=== PATIENT | male | born 1970 | race Caucasian/White ===

== ENCOUNTER 2017-01-20 21:24 | Emergency (ER) | payer MEDICAID, MEDICARE ==
[~2017-01-20] VITALS: Ht 182.9 cm; Wt 113.4 kg
[~2017-01-20 21:24] MED LIST: ARIP5TAB20 PO; ARPZ10T; ASP81TEC PO; BSP10T; DICL75TA2 PO; Famotidine PO; HYDR-3062 PO; LISI1TAB8 PO; LORA10TA7 PO; OFLO5DRO7 EACH EAR; PARO10TA2 PO; PARO10TA21; PROP80TA3 PO; SULF1TAB35 PO; TIZA4CAP6 PO
--- NOTE | 2017-01-20 22:24 | ED General ---
General Chief Complaint: Head/Cervical Problems Stated Complaint: L SIDE NECK PAIN/SWELLING Nursing Triage Note: PT CO OF LUMP ON SIDE OF NECK/SHOULDER AREA, HAS HAD FOR 1 WEEK, PAIN 4/10 Nursing Sepsis Screen: No Definite Risk Source of Information: Patient, Spouse Exam Limitations: No Limitations History of Present Illness Time Seen by Provider: 22:09 Initial Comments Patient presents to ER by private conveyance with his with a chief complaint of a lump on the left side of his neck that has progressively grown for the past week. It is not painful he has not had any recent infections illness sore throat runny nose here pain eye pain nose pain. He states he's had no shortness of breath cough pain in his chest or his abdomen. He does smoke about half a pack a day. He said his mom had lung cancer. His sister has lymphoma and she is about a year younger than him. He says he is not having any nausea diarrhea or constipation. He denies any weight change however he does not check his weight. No fatigue or malaise or anorexia. He states he is having about a 4 out of 10 dull aching pain in that area of the lump just above his clavicle on the left side of his neck and shoulder. He has not taken anything for today. Allergies and Home Medications Allergies Coded Allergies: cefaclor (Unverified Allergy, Mild, ABDOMINAL PAIN/NAUSEA, 10/22/08) erythromycin base (Unverified Allergy, Mild, 10/21/08) Home Medications Aripiprazole 5 Mg Tablet, 5 MG PO HS, (Reported) Hydrocodone/Acetaminophen 1 Each Tablet, 1-2 TAB PO Q4H PRN for PAIN, #40 Prescribed by: MARISOL GALLEGOS on 07/03/15 1226 Lisinopril/Hydrochlorothiazide 1 Tab Tablet, 1 TAB PO BID, #30 Ref 11 Prescribed by: VALERI VELARDE on 12/26/14 1619 Loratadine 10 Mg Tablet, 10 MG PO DAILY, (Reported) Ofloxacin 5 Ml Drops, 3 DROPS EACH EAR BID for 5 Days, Ref 3 Prescribed by: MARISOL GALLEGOS on 07/03/15 1226 Paroxetine Hcl 10 Mg Tablet, 50 MG PO DAILY, (Reported) Propranolol Hcl 80 Mg Tablet, 80 MG PO BID, (Reported) Tizanidine Hcl 4 Mg Capsule, 4 MG PO Q8H PRN for SPASMS, (Reported) [Famotidine] 20 MG TABLET, 20 MG PO BID, #60 Ref 11 Prescribed by: VALERI VELARDE on 12/26/14 1619 Constitutional: see HPI, No chills, No diaphoresis EENTM: No ear pain, No eye pain Respiratory: No cough, No short of breath Cardiovascular: No chest pain, No palpitations, No syncope, No vascular heart diseas, other (orthopnea positive) Gastrointestinal: No abdominal pain, No constipation, No diarrhea, No nausea, No vomiting Genitourinary: No dysuria, No pain Musculoskeletal: No back pain, No joint pain Skin: other (skin is darkening over the left side of his neck and shoulder) Psychiatric/Neurological: Denies Headache, Denies Numbness Past Ldvtxdu-Wuhezz-Dansey Hx Patient Social History Alcohol Use: Denies Use Recreational Drug Use: No Smoking Status: Current Everyday Smoker Type Used: Cigarettes 2nd Hand Smoke Exposure: No Recent Foreign Travel: No Contact w/Someone Who Travel: No Recent Infectious Disease Expo: No Recent Hopitalizations: No Immunizations Up To Date Tetanus Booster (TDap): Unknown Date of Influenza Vaccine: Apr 25, 2015 Surgeries HX Surgeries: Yes (reattached tendon on right hand) Surgeries: Gallbladder, Orthopedic, Vasectomy Respiratory Hx Respiratory Disorders: Yes (Tobaccoism, NEEDS SLEEP STUDY) Respiratory Disorders: Sleep Apnea Cardiovascular Hx Cardiac Disorders: Yes (past chest pain, STRESS TEST THIS SUMMER-) Cardiac Disorders: Hypertension Neurological Hx Neurological Disorders: Yes Reproductive System Hx Reproductive Disorders: No Sexually Transmitted Disease: No HIV/AIDS: No Genitourinary Hx Genitourinary Disorders: No Gastrointestinal Hx Gastrointestinal Disorders: Yes Gastrointestinal Disorders: Gastroesophageal Reflux Musculoskeletal Hx Musculoskeletal Disorders: Yes Musculoskeletal Disorders: Degenerate Disk Disease, Arthritis, Chronic Back Pain Endocrine Hx Endocrine Disorders: No HEENT HX ENT Disorders: Yes (GLASSES) Loss of Vision: Bilateral Hearing Impairment: Denies Cancer Hx Cancer: No Psychosocial Hx Psychiatric Problems: Yes Behavioral Health Disorders: Anxiety, Bipolar, Depression Integumentary HX Skin/Integumentary Disorder: No Blood Transfusions Hx Blood Disorders: No Adverse Reaction to a Blood Tr: No Family Medical History Significant Family History: Cancer Family Medial History: FH: cancer 19 MOTHER ( FROM CANCER LAST YEAR 2013.) Physical Exam Vital Signs Vital Sign - Last 12Hours 01/20/17 22:05 Temp 97.2 Pulse 112 Resp 20 B/P (MAP) 148/93 Pulse Ox 96 Capillary Refill : Less Than 3 Seconds General Appearance: No Apparent Distress, WD/WN, Obese Eyes: Bilateral Eye EOMI, Bilateral Eye Normal Inspection, Bilateral Eye PERRL HEENT: Pharynx Normal, Other (mild diaphoresis both sides of his face.) Neck: Other (there is a 4-5 cm soft mobile and mildly tender mass left of his neck in the Virchow node region) Respiratory: Chest Non Tender, Lungs Clear, Normal Breath Sounds Cardiovascular: No Edema Gastrointestinal: Normal Bowel Sounds, No Organomegaly, No Pulsatile Mass, Non Tender, Soft Extremity: Normal Capillary Refill, Normal Range of Motion, Non Tender Neurologic/Psychiatric: Alert, Oriented x3, No Motor/Sensory Deficits, 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 II- XII Norm as Tested Skin: Normal Color, Warm/Dry Focused Exam Lactic Acid Level Laboratory Tests Test 01/21/17 00:23 Progress/Results/Core Measures Results/Orders Lab Results Laboratory Tests Test 01/20/17 22:40 01/21/17 00:23 Range/Units White Blood Count 12.7 H 4.3-11.0 10^3/uL Red Blood Count 4.72 4.35-5.85 10^6/uL Hemoglobin 15.1 13.3-17.7 G/DL Hematocrit 46 40-54 % Mean Corpuscular Volume 97 80-99 FL Mean Corpuscular Hemoglobin 32 25-34 PG Mean Corpuscular Hemoglobin Concent 33 32-36 G/DL Red Cell Distribution Width 12.5 10.0-14.5 % Platelet Count 326 130-400 10^3/uL Mean Platelet Volume 10.1 7.4-10.4 FL Neutrophils (%) (Auto) 56 42-75 % Lymphocytes (%) (Auto) 34 12-44 % Monocytes (%) (Auto) 9 0-12 % Eosinophils (%) (Auto) 1 0-10 % Basophils (%) (Auto) 0 0-10 % Neutrophils # (Auto) 7.0 1.8-7.8 X 10^3 Lymphocytes # (Auto) 4.3 H 1.0-4.0 X 10^3 Monocytes # (Auto) 1.2 H 0.0-1.0 X 10^3 Eosinophils # (Auto) 0.1 0.0-0.3 10^3/uL Basophils # (Auto) 0.0 0.0-0.1 10^3/uL Sodium Level 137 135-145 MMOL/L Potassium Level 3.7 3.6-5.0 MMOL/L Chloride Level 105 98-107 MMOL/L Carbon Dioxide Level 16 L 21-32 MMOL/L Anion Gap 16 H 5-14 MMOL/L Blood Urea Nitrogen 16 7-18 MG/DL Creatinine 0.80 0.60-1.30 MG/DL Estimat Glomerular Filtration Rate > 60 BUN/Creatinine Ratio 20 Glucose Level 99 70-105 MG/DL Calcium Level 8.7 8.5-10.1 MG/DL Total Bilirubin 0.4 0.1-1.0 MG/DL Aspartate Amino Transf (AST/SGOT) 18 5-34 U/L Alanine Aminotransferase (ALT/SGPT) 26 0-55 U/L Alkaline Phosphatase 44 40-136 U/L C-Reactive Protein High Sensitivity 1.09 H 0.00-0.50 MG/DL B-Type Natriuretic Peptide 14.7 <100.0 PG/ML Total Protein 7.8 6.4-8.2 GM/DL Albumin 4.1 3.2-4.5 GM/DL My Orders Orders - JOVAN DIAS BNP (01/20/17 22:25) Cbc With Automated Diff (01/20/17 22:25) Comprehensive Metabolic Panel (01/20/17 22:25) Hs C Reactive Protein (01/20/17 22:25) Chest Pa/Lat (2 View) (01/20/17 22:25) Saline Lock/Iv-Start (01/20/17 22:25) Ns Iv 1000 Ml (Sodium Chloride 0.9%) (01/20/17 22:25) Ct Chest/Abdomen/Pelvis W (01/20/17 22:25) Iohexol Injection (Omnipaque 350 Mg/Ml 1 (01/20/17 23:00) Ns (Ivpb) (Sodium Chloride 0.9% Ivpb Bag (01/20/17 23:00) Lactic Acid Analyzer (01/21/17 00:18) Medications Given in ED Current Medications Medications Dose Ordered Sig/Tang Route Start Time Stop Time Status Last Admin Dose Admin Iohexol 100 ml ONCE ONCE IV 01/20/17 23:00 01/20/17 23:01 DC 01/20/17 22:57 100 ML Sodium Chloride 100 ml ONCE ONCE IV 01/20/17 23:00 01/20/17 23:01 DC 01/20/17 22:57 80 ML Sodium Chloride 1,000 ml @ 0 mls/hr Q0M ONCE IV 01/20/17 22:25 01/20/17 22:27 DC 01/20/17 23:10 1,000 MLS/HR Vital Signs/I&O Vital Sign - Last 12Hours 01/20/17 22:05 Temp 97.2 Pulse 112 Resp 20 B/P (MAP) 148/93 Pulse Ox 96 Blood Pressure Mean: 111 Progress Note #1: Time: 22:24 Progress Note With his history of smoking and now I large likely lymphatic tissue and his workout nodule its popped over 1 week and is only mildly tender I would be concerned about GI source. 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 We'll go ahead and get CT scan of the chest and abdomen with contrast. 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 Diagnostic Imaging Diagonstic Imaging: CT Plain Films/CT/US/NM/MRI: chest, abdomen (pelvis with) Consults Consults : Consulting Physician: NOEL JACKSON MD Consults Notes Left VM 0024 Departure Impression Impression: Primary Impression: Mass of left side of neck Disposition: 01 HOME, SELF-CARE Condition: Stable Departure-Patient Inst. Decision time for Depature: 00:48 Referrals: [facility] (PCP) Primary Care Physician Patient Instructions: LYMPH NODE SWELLING Add. Discharge Instructions: I recommend that she get in touch with your primary care physician's office tomorrow morning and discuss this evening's findings with him. I will send a copy of this note to your primary care physician. Further workup may include potentially biopsying lymph nodes if they're not getting better. If you're having pain on the lymph node on the left side of her neck you can apply warm compresses to it take Tylenol 1000 mg every 8 hours or ibuprofen 800 mg every 8 hours. Make sure drinking plenty of fluids. If you have any new or worrisome symptoms such as nausea and vomiting or extreme pain or fever over 102 then you should return to the ER immediately. Otherwise plan on getting in with your primary care physician early next week. All discharge instructions reviewed with patient and/or family. Voiced understanding. Copy Copies To 1: PAMELA VALLEJO TITUS J Jan 20, 2017 22:24
[2017-01-20 22:51] LABS: BASOPHILS % (AUTO) 0 % (0-10); EOSINOPHILS # (AUTO) 0.1 10^3/uL (0.0-0.3); EOSINOPHILS % (AUTO) 1 % (0-10); LYMPHOCYTES # (AUTO) 4.3 X 10^3 (1.0-4.0); LYMPHOCYTES % (AUTO) 34 % (12-44); MEAN CORPUSCULAR HEMOGLOBIN 32 PG (25-34); MEAN CORPUSCULAR HGB CONC 33 G/DL (32-36); MEAN CORPUSCULAR VOLUME 97 FL (80-99); MEAN PLATELET VOLUME 10.1 FL (7.4-10.4); MONOCYTES # (AUTO) 1.2 X 10^3 (0.0-1.0); MONOCYTES % (AUTO) 9 % (0-12); NEUTROPHILS % (AUTO) 56 % (42-75); PLATELET COUNT 326 10^3/uL (130-400); RED BLOOD COUNT 4.72 10^6/uL (4.35-5.85); RED CELL DISTRIBUTION WIDTH 12.5 % (10.0-14.5); WHITE BLOOD COUNT 12.7 10^3/uL (4.3-11.0)
[2017-01-20] MEDS: NS 100 ML (IVPB) BAG IV ONE (22:57)
[2017-01-20] MEDS: IOHEXOL 350 MG/ML 100 ML (OMNIPAQUE 350) VIAL IV ONE (22:57)
[2017-01-20 23:08] LABS: ALANINE AMINOTRANSFERASE 26 U/L (0-55); ALBUMIN 4.1 GM/DL (3.2-4.5); ANION GAP 16 MMOL/L (5-14); ASPARTATE AMINO TRANSFERASE 18 U/L (5-34); BILIRUBIN,TOTAL 0.4 MG/DL (0.1-1.0); BLOOD UREA NITROGEN 16 MG/DL (7-18); BUN/CREATININE RATIO 20; CALCIUM 8.7 MG/DL (8.5-10.1); CARBON DIOXIDE 16 MMOL/L (21-32); CHLORIDE 105 MMOL/L (98-107); GFR ESTIMATED > 60; GLUCOSE 99 MG/DL (70-105); POTASSIUM 3.7 MMOL/L (3.6-5.0); SODIUM 137 MMOL/L (135-145); TOTAL PROTEIN 7.8 GM/DL (6.4-8.2); hs C REACTIVE PROTEIN 1.09 MG/DL (0.00-0.50)
[2017-01-20] MEDS: NS IV 1000 ML 1,000 ML IV ONE (23:10)
[2017-01-21 01:04] VITALS: BP 132/68
--- NOTE | 2017-01-21 07:16 | Diagnostic Imaging Report ---
PROCEDURE: CT chest, abdomen, and pelvis with contrast. TECHNIQUE: Multiple contiguous axial images were obtained through the chest, abdomen, and pelvis after the administration of intravenous contrast. INDICATION: Swelling to the left shoulder and clavicle x1 week. COMPARISON: 01/20/2015 FINDINGS: CT chest: Cardiomediastinal structures show normal heart size. There is no large pericardial effusion. No pathologically enlarged or morphologically abnormal adenopathy is seen within the mediastinum, caleb, nor axilla. Evaluation of the lung merrill demonstrates no focal consolidation, pleural effusion, nor pneumothorax. There is some mild air trapping within the anterior upper lobes. No pulmonary nodules or masses are identified. Bony structures show no acute abnormalities. No lytic or blastic osseous lesions are seen. CT abdomen: Normal appendix is identified. Small bowel loops are nondistended. There are a few scattered colonic diverticuli. There is no CT evidence of acute diverticulitis. Liver appears diffusely hypodense on this postcontrast exam. Findings are likely on the basis of background of hepatic steatosis. No focal hepatic mass type lesions are seen. There is punctate rounded area of hypoenhancement within the parenchyma of the left kidney (image 44, series 5). This may represent a cyst, but is too small to adequately characterize based on this exam. Otherwise, the Kidneys, adrenal glands, spleen, and pancreas have a normal CT appearance. There is slight stranding of the central mesenteric fat. Few prominent appearing, yet subcentimeter mesenteric lymph nodes are noted. Otherwise, no abnormal mesenteric or retroperitoneal adenopathy is identified. There is no loculated fluid collection, free fluid, nor free air within the abdomen. 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 Bony structures show no acute abnormalities. CT pelvis: Urinary bladder is grossly unremarkable. There is no loculated fluid collection, free fluid, nor free air within the pelvis. No abnormal lymph nodes are seen. Bony structures show no acute abnormalities. IMPRESSION: 1. No acute cardiopulmonary process. 2. Mild air trapping within the bilateral upper lobes. Correlation with underlying obstructive pulmonary disease is recommended. 3. Probable hepatic steatosis. 4. Duplicated IVC. 5. Small rounded hypodensity within the parenchyma of the left kidney. Findings could be on the basis of a small cyst, although it is too small to adequately characterize based on this exam. 6. Few prominent appearing, yet subcentimeter mesenteric lymph nodes with slight haziness of the mesenteric fat. Finding are nonspecific, but can be seen with underlying mesenteric panniculitis. Dictated by: Dictated on workstation # [id number]
--- NOTE | 2017-01-21 07:29 | Diagnostic Imaging Report ---
PA and lateral views of the chest. INDICATION: Swelling of the left shoulder and clavicle. FINDINGS: The lungs demonstrate interstitial prominence which appears chronic. The heart is normal. No effusion or pneumothorax. Mediastinum and caleb appear unremarkable. IMPRESSION: No acute process. Dictated by: Dictated on workstation # [id number]
== END 2017-01-21 01:06 | disposition home or self-care (01) ==
LOC: EDUNIT# 21:24 → ER 21:27
DX: R22.1 Localized swelling, mass and lump, neck (principal); F31.9 Bipolar disorder, unspecified; F41.9 Anxiety disorder, unspecified; M47.9 Spondylosis, unspecified; K21.9 Gastro-esophageal reflux disease without esophagitis; I10 Essential (primary) hypertension; F17.210 Nicotine dependence, cigarettes, uncomplicated; Z98.52 Vasectomy status; Z98.890 Other specified postprocedural states
CPT/HCPCS: 36415; 71020; 71260; 74177; 80053; 83605; 83880; 85025; 86141

== ENCOUNTER → 2017-02-14 | Outpatient (CLI) | payer MEDICARE ==
--- NOTE | 2017-02-14 18:41 | Diagnostic Imaging Report ---
EXAMINATION: Ultrasound of the soft tissues. INDICATION: Soft tissue fullness just superior to the left clavicle. FINDINGS: There are no previous ultrasound examinations available for comparison. The CT chest exam performed on 01/20/2017 failed to show any sign of a mass in the left supraclavicular region. On this exam, there is no discrete solid or cystic mass visualized. There is a small 4 x 9 mm fairly well-circumscribed hypoechoic lesion with a hyperechoic center in the soft tissues in the left supraclavicular region. This does have the appearance of a benign lymph node. IMPRESSION: There is a small lymph node in the left supraclavicular region, but there is no discrete mass or cyst identified otherwise. Dictated by: Dictated on workstation # [id number]
== END ==
LOC: RAD 14:57
PROVIDERS: ATTEND Surgery
DX: R59.0 Localized enlarged lymph nodes (principal)
CPT/HCPCS: 76536

== ENCOUNTER 2019-09-11 05:39 | Outpatient (CLI) | payer MEDICARE ==
[~2019-09-11] VITALS: Ht 182 cm; Wt 131.0 kg
[~2019-09-11 05:39] MED LIST changes: +ACHD5005 PO; -HYDR-3062 PO; +OFLO5DRO33 EACH EAR; -OFLO5DRO7 EACH EAR
[2019-09-11] MEDS ORDERED: PARO40TA PO (13:46)
[2019-09-11] MEDS ORDERED: OMG1KC PO (13:46)
[2019-09-11] MEDS ORDERED: ASPI-586 PO (13:46)
[2019-09-11] MEDS ORDERED: PROP40TA5 PO (13:55)
== END 2019-09-11 13:57 | disposition home or self-care (01) ==
LOC: PREOP 05:39
PROVIDERS: ATTEND Surgery
DX: Z01.818 Encounter for other preprocedural examination (principal)

== ENCOUNTER → 2020-09-11 | Outpatient (CLI) | payer MEDICARE, MEDICAID ==
[~2020-09-11] MED LIST changes: +ASPI-586 PO; +OMG1KC PO; +PARO40TA PO; +PROP40TA5 PO; +RT-ALBUTEROL SULF 2.5 MG/3 ML PRE-MIX VIAL INH ONE
== END ==
LOC: RT 15:30
PROVIDERS: ATTEND Nurse Practitioner Family
DX: R06.00 Dyspnea, unspecified (principal); F17.200 Nicotine dependence, unspecified, uncomplicated
CPT/HCPCS: 94060; 94726; 94729

== ENCOUNTER 2020-10-03 05:30 | Outpatient (RCR) | payer MEDICARE, MEDICAID ==
[~2020-10-03] VITALS: Ht 182.8 cm; Wt 136.0 kg
[~2020-10-03 05:30] MED LIST changes: +ATOR10TA66 PO; +DESV100T PO; +LISI1TAB46 PO; +MELA3CAP2 PO; +PANT40TA2 PO; -RT-ALBUTEROL SULF 2.5 MG/3 ML PRE-MIX VIAL INH ONE; +TIZA4TAB4 PO
== END 2020-10-03 12:33 | disposition home or self-care (01) ==
LOC: PREOP 05:30
PROVIDERS: ATTEND Surgery
DX: Z01.812 Encounter for preprocedural laboratory examination (principal); K21.9 Gastro-esophageal reflux disease without esophagitis; Z20.822 Contact with and (suspected) exposure to COVID-19
CPT/HCPCS: 87635

== ENCOUNTER 2020-10-07 08:23 | Day surgery (SDC) | payer MEDICARE, MEDICAID ==
[~2020-10-07] VITALS: Ht 182.9 cm; Wt 136.0 kg
[2020-10-07] MEDS ORDERED: LACTATED RINGERS 1,000 ML IV ONE (08:24)
[2020-10-07] MEDS ORDERED: LACTATED RINGERS 1,000 ML IV STA (08:38)
[2020-10-07 08:40] VITALS: BP 131/81
[2020-10-07] MEDS ORDERED: RT-ALBUTEROL/IPRATROPIUM 3 ML (DUONEB) VIAL INH ONE (08:45)
[2020-10-07] MEDS ORDERED: HURRICAINE EXT TUBE (BENZOCAINE) XX PRN (08:45)
[2020-10-07] MEDS ORDERED: RT-ALBUTEROL SULF 2.5 MG/3 ML PRE-MIX VIAL ONE (08:49)
[2020-10-07] MEDS ORDERED: KETAMINE/NaCl 50 MG/5 ML SYRINGE (ED ONLY) ONE (08:50)
[2020-10-07] MEDS ORDERED: PROPOFOL INJECTION 50 ML IV ONE (08:50)
--- NOTE | 2020-10-07 08:53 | Progress Note-Pre Operative ---
Pre-Operative Progress Note H&P Reviewed The H&P was reviewed, patient examined and no changes noted. Date Seen by Provider: Oct 07, 2020 Time Seen by Provider: 08:53 Date H&P Reviewed: Oct 07, 2020 Time H&P Reviewed: 08:53 Pre-Operative Diagnosis: gerd, epigastric abdominal pain COURTNEY ENRIQUEZ DO Oct 07, 2020 08:53
[2020-10-07] MEDS ORDERED: RT-ALBUTEROL SULF 2.5 MG/3 ML PRE-MIX VIAL INH ONE (09:00)
[2020-10-07] MEDS ORDERED: MIDAZOLAM 2 MG/2 ML (VERSED) VIAL ONE (09:02)
[2020-10-07] MEDS ORDERED: HURRICAINE EXT TUBE (BENZOCAINE) ONE (09:17)
[2020-10-07 09:45] VITALS: BP 143/85
--- NOTE | 2020-10-07 09:49 | Progress Note-Post Operative ---
Post-Operative Progess Note Surgeon (s)/Arch Support Maker (s) Surgeon COURTNEY ENRIQUEZ DO Arch Support Maker: na Pre-Operative Diagnosis gerd, epigastric abdominal pain Post-Operative Diagnosis gastric and duodenal ulcers, hiatal hernia, rectal polyp Procedure & Operative Findings Date of Procedure 10/07/20 Procedure Performed/Findings egd c biopsy antrum, colonoscopy c snare polypectomy rectal polyp Anesthesia Type per materials engineering technician Estimated Blood Loss Estimated blood loss (mL): none Specimens/Packing Specimens Removed antrum, rectal polyp COURTNEY ENRIQUEZ DO Oct 07, 2020 09:49
[2020-10-07 09:50] VITALS: BP_SYST 122; BP_SYST 160; BP_DIAS 102; BP_DIAS 83
--- NOTE | 2020-10-07 09:50 | Anesthesia-General Post-Op ---
MAC Patient Condition Mental Status/LOC: Same as Preop Cardiovascular: Satisfactory Nausea/Vomiting: Absent Respiratory: Satisfactory Pain: Controlled Complications: Absent Post Op Complications Complications None Follow Up Care/Instructions Patient Instructions None needed. Anesthesiology Discharge Order Discharge Order Patient is doing well, no complaints, stable vital signs, no apparent adverse anesthesia problems. No complications reported per nursing. BIB STRATTON CRNA Oct 07, 2020 09:50
[2020-10-07] MEDS ORDERED: SUCR1TAB36 PO (09:51)
[2020-10-07] MEDS ORDERED: PANT40TA2 PO (09:51)
--- NOTE | 2020-10-07 09:52 | Discharge Inst-Simple/Standard ---
Discharge Inst-Standard Discharge Medications New, Converted or Re-Newed RX: Transmitted to Pharmacy Patient Instructions/Follow Up Plan of Care/Instructions/FU: 3 weeks Rachel Activity as Tolerated: Yes Discharge Diet: Regular Diet (gerd/ulcer diet) COURTNEY ENRIQUEZ DO Oct 07, 2020 09:52
[2020-10-07 10:20] VITALS: BP 127/68
[2020-10-07 10:25] VITALS: BP 127/68
--- NOTE | 2020-10-07 14:02 | OPERATIVE REPORT ---
DATE OF SERVICE: 10/07/2020 PREOPERATIVE DIAGNOSES: Gastroesophageal reflux disease, epigastric abdominal pain. POSTOPERATIVE DIAGNOSES: Gastric and duodenal ulcers, hiatal hernia, rectal polyp. SURGEON: Courtney Ramos DO ANESTHESIA: Per MANAGER COMMERCIAL. ESTIMATED BLOOD LOSS: None. COMPLICATIONS: None. INDICATIONS: The patient is a 50-year-old male with abdominal pain and GERD symptoms. He is recommended to have EGD and colonoscopy for further evaluation. He understands risks and benefits of procedure and wished to proceed with procedure. Consent was signed in the chart. DESCRIPTION OF PROCEDURE: The patient was taken to the endoscopy suite, placed in left lateral recumbent position. Timeout was performed. Scope was inserted in mouth, down the esophagus, stomach and into the duodenum without difficulty. No polyps, masses or ulcerations within the second portion of the duodenum. First portion, small ulceration was present. Scope was slowly retracted back into the stomach, where also in the antrum, multiple ulcerations present. Biopsy of the antrum near the ulcer was performed. Scope was retroflexed noting a sliding hiatal hernia, no other pathology noted. Scope was returned to its normal position, slowly withdrawn to distal esophagus, which had normal appearance. No polyps, masses or ulcerations. No erythematous changes. Scope was slowly retracted back until completely removed. Noting no other pathology. Digital rectal exam was performed. No palpable polyps, masses or ulcerations. Scope was inserted into the rectum, advanced all the way to the cecum with minimal difficulty. Prep was adequate. Scope was then slowly retracted back. There were no polyps, masses or ulcerations within the cecum, ascending, transverse, descending and sigmoid colon. In the rectum, a small polyp was present, which snare polypectomy was performed. Scope was then retracted and inserted multiple times, noting no other pathology. Scope was then slowly retracted until completely removed. The patient tolerated procedure well without any complications and taken to recovery room in stable condition. RECOMMENDATIONS: The patient will need repeat colonoscopy in 5 years. The patient had also started on Protonix 40 mg b.i.d. and Carafate 1 gram four times a day. We will see the office in 3 weeks. Any issues before that be seen at that time. Job ID: [id number] DocumentID: [id number] Dictated Date: 10/07/2020 09:55:26 Him Coder Date: 10/07/2020 14:01:15 Dictated By: COURTNEY RAMOS DO
== END 2020-10-07 10:47 | disposition home or self-care (01) ==
LOC: ENDO 08:23
PROVIDERS: ATTEND Surgery
DX: D12.8 Benign neoplasm of rectum (principal); K44.9 Diaphragmatic hernia without obstruction or gangrene; K25.9 Gastric ulcer, unspecified as acute or chronic, without hemorrhage or perforation; K26.9 Duodenal ulcer, unspecified as acute or chronic, without hemorrhage or perforation; I10 Essential (primary) hypertension; F32.9 Major depressive disorder, single episode, unspecified; F41.9 Anxiety disorder, unspecified; G43.909 Migraine, unspecified, not intractable, without status migrainosus; K21.9 Gastro-esophageal reflux disease without esophagitis; E66.01 Morbid (severe) obesity due to excess calories; Z68.41 Body mass index [BMI] 40.0-44.9, adult; F17.210 Nicotine dependence, cigarettes, uncomplicated; Z79.899 Other long term (current) drug therapy; Z88.1 Allergy status to other antibiotic agents
CPT/HCPCS: 94640

== ENCOUNTER 2021-02-21 11:23 | Emergency (ER) | payer MEDICARE, MEDICAID ==
[~2021-02-21] VITALS: Ht 180.3 cm; Wt 136.0 kg
[~2021-02-21 11:23] MED LIST changes: +SUCR1TAB36 PO
[2021-02-21 12:15] VITALS: BP 123/80
[2021-02-21] MEDS ORDERED: ACHD5005 PO (12:30)
[2021-02-21] MEDS ORDERED: TR1C15 TP (12:30)
--- NOTE | 2021-02-21 12:30 | ED Lower Extremity ---
General Stated Complaint: SPIDER BITE, R LEG, PAIN BEHIND KNEE Source: patient Exam Limitations: no limitations History of Present Illness Date Seen by Provider: Feb 21, 2021 Time Seen by Provider: 12:26 Initial Comments Seen by [facility] yesterday for spider bite to the posterior right knee. Subsequently it has blistered and worsened in appearance. He was given a prescription for doxycycline 100 mg twice a day. Onset: yesterday Severity: moderate Pain/Injury Location: right knee Method of Injury: unknown Modifying Factors: Worse With Movement Allergies and Home Medications Allergies Coded Allergies: erythromycin base (Verified Allergy, Severe, ANAPHYLAXIS, 09/18/19) cefaclor (Verified Allergy, Mild, ABDOMINAL PAIN/NAUSEA, 09/18/19) Home Medications Aspirin 81 Mg Tablet.dr, 81 MG PO DAILY, (Reported) Atorvastatin Calcium 10 Mg Tablet, 10 MG PO HS, (Reported) Desvenlafaxine Succinate 100 Mg Tab.er.24h, 100 MG PO DAILY, (Reported) Lisinopril/Hydrochlorothiazide 1 Each Tablet, 1 EACH PO BID, (Reported) Pantoprazole Sodium 40 Mg Tablet.dr, 40 MG PO BID Prescribed by: COURTNEY ENRIQUEZ on 10/07/20950 Propranolol HCl 40 Mg Tablet, 80 MG PO BID, (Reported) Sucralfate 1 Gm Tablet, 1 GM PO QID Prescribed by: COURTNEY ENRIQUEZ on 10/07/20950 Tizanidine HCl 4 Mg Tablet, 4 MG PO BID, (Reported) Patient Home Medication List Home Medication List Reviewed: Yes Review of Systems Constitutional: see HPI EENTM: see HPI Respiratory: no symptoms reported Cardiovascular: no symptoms reported Genitourinary: no symptoms reported Musculoskeletal: see HPI Skin: no symptoms reported Psychiatric/Neurological: No Symptoms Reported Past Fjsvhkh-Zbnosk-Jgxifo Hx Immunizations Up To Date Tetanus Booster (TDap): Unknown Seasonal Allergies Seasonal Allergies: Yes Past Medical History Surgeries: Yes (reattached tendon on right hand, SINUS, TUBE IN R EAR) Gallbladder, Orthopedic, Vasectomy Respiratory: Yes (HAS HAD RESPIRATORY TESTING- AWAITING RESULTS) Sleep Apnea Currently Using CPAP: No Currently Using BIPAP: No Cardiac: Yes (past chest pain, STRESS TEST THIS SUMMER-PASSED) High Cholesterol, Hypertension Neurological: Yes Headaches /Migraines Reproductive Disorders: No Sexually Transmitted Disease: No HIV/AIDS: No Genitourinary: No Gastrointestinal: Yes Gastroesophageal Reflux Musculoskeletal: Yes Degenerate Disk Disease, Arthritis, Chronic Back Pain Endocrine: No HEENT: Yes (GLASSES) Loss of Vision: Denies Hearing Impairment: Denies Cancer: No Psychosocial: Yes Anxiety, Bipolar, Depression Integumentary: No Blood Disorders: No Adverse Reaction/Blood Tranf: No (N/A) Family Medical History FH: cancer 19 MOTHER ( FROM CANCER LAST YEAR 2013.) Cancer Physical Exam Vital Signs Capillary Refill : Height, Weight, BMI Height: 6'0" Weight: 250lbs. 0.0oz. [id number]; 40.65 BMI Method:Stated General Appearance: WD/WN, no apparent distress Respiratory: no respiratory distress, no accessory muscle use Gastrointestinal: normal bowel sounds, non tender Hips: bilateral hip non-tender, bilateral hip normal inspection, bilateral hip normal range of motion Legs: right leg other (Behind the right knee is a about a 5 x 2 cm area of erythema with a large central bulla and some purplish cyanotic appearing tissue) Knees: bilateral knee non-tender, bilateral knee normal inspection, bilateral knee normal range of motion Ankles: bilateral ankle non-tender, bilateral ankle normal inspection, bilateral ankle normal range of motion Neurologic/Psychiatric: alert, normal mood/affect, oriented x 3 Skin: normal color, warm/dry Departure Communication (Admissions) This is also very itchy. I will put him on some topical steroid, continue the doxycycline and some pain medication for the pain. Impression Primary Impression: Spider bite Disposition: 01 HOME, SELF-CARE Condition: Stable Departure-Patient Inst. Decision time for Depature: 12:28 Referrals: JULIA LEUNG MD (PCP) Primary Care Physician DAJUAN BEJARANO APRN (Family) Primary Care Physician Patient Instructions: Spider Bites Add. Discharge Instructions: 1. Keep a close eye on this for any signs of ongoing necrosis. If there is a large area of apparent tissue this may need to be cut out. Follow-up with [facility]. Scripts Hydrocodone/Acetaminophen (Hydrocodone-Acetamin 5-325 mg) 1 Each Tablet 1 TAB PO Q4H PRN for PAIN-MODERATE (5-7), #10 TAB Prov: ELADIO NIETO APRN 02/21/21 Triamcinolone Acet (Triamcinolone Acetonide 0.1% Cream) 15 Gm Cr 15 GM TP BID, #1 EA Prov: ELADIO NIETO APRN 02/21/21 ELADIO NIETO APRN Feb 21, 2021 12:30
== END 2021-02-21 12:35 | disposition home or self-care (01) ==
LOC: EDUNIT# 11:23 → ER 11:27
DX: T63.301A Toxic effect of unspecified spider venom, accidental (unintentional), initial encounter (principal); G47.30 Sleep apnea, unspecified; I10 Essential (primary) hypertension; E78.00 Pure hypercholesterolemia, unspecified; K21.9 Gastro-esophageal reflux disease without esophagitis; F32.9 Major depressive disorder, single episode, unspecified; Z79.899 Other long term (current) drug therapy; Z79.82 Long term (current) use of aspirin
CPT/HCPCS: 99283

== ENCOUNTER 2021-02-23 21:11 | Emergency (ER) | payer MEDICARE, MEDICAID ==
[~2021-02-23] VITALS: Ht 180.3 cm; Wt 136.0 kg
[~2021-02-23 21:11] MED LIST changes: +TR1C15 TP
--- NOTE | 2021-02-23 22:10 | ED Integumentary General ---
General Chief Complaint: Skin/Wound Problems Stated Complaint: SPIDER BITE Nursing Triage Note: reports seen for spider bite 02/21/21 et. started on abx. reports pain/swelling/redness increasing Source: patient, family () Exam Limitations: no limitations (LAISHA ALLAN STUDENT) History of Present Illness Date Seen by Provider: Feb 23, 2021 Time Seen by Provider: 21:50 Initial Comments Pt presents to ED with at bedside via private conveyance with complaint of RLE pain/swelling. He states that he received a spider bite on 02/19/21 and was seen on 02/21 here in the ED, where he was prescribed hydrocodone/acetaminophen and doxycycline. He has been taking his medications as prescribed but reports that the pain has been getting worse, the redness/swelling is also increasing in size. He rates the pain 6/10 to his lower posterior R thigh, burning in sensation, denies radiation. Denies associated fevers/chills, N/V, chest pain, SOB, abd pain. Location Injury Occurred: Home Timing/Duration: other (Spider bite on 02/19/21) Severity: moderate Location: extremities (Posterior R thigh) Possible Cause: insect bite (spider) Modifying Factors: improves with topical steriods, improves with other (5/325 hydrocodone acetaminophen with moderate relief, last dose a few hours ago) Associated Symptoms: blisters, change in skin texture (erythema/induration to lower posterior R thigh, worsening per pt), edema; No fever, No headache, No numbness, No paresthesia, No tingling (LAISHA ALLAN STUDENT) Allergies and Home Medications Allergies Coded Allergies: erythromycin base (Verified Allergy, Severe, ANAPHYLAXIS, 09/18/19) cefaclor (Verified Allergy, Mild, ABDOMINAL PAIN/NAUSEA, 09/18/19) Home Medications Aspirin 81 Mg Tablet.dr, 81 MG PO DAILY, (Reported) Atorvastatin Calcium 10 Mg Tablet, 10 MG PO HS, (Reported) Desvenlafaxine Succinate 100 Mg Tab.er.24h, 100 MG PO DAILY, (Reported) Hydrocodone/Acetaminophen 1 Each Tablet, 1 TAB PO Q4H PRN for PAIN-MODERATE (5- 7) Prescribed by: ELADIO NIETO on 02/21/21 1230 Lisinopril/Hydrochlorothiazide 1 Each Tablet, 1 EACH PO BID, (Reported) Pantoprazole Sodium 40 Mg Tablet.dr, 40 MG PO BID Prescribed by: COURTNEY ENRIQUEZ on 10/07/20950 Propranolol HCl 40 Mg Tablet, 80 MG PO BID, (Reported) Sucralfate 1 Gm Tablet, 1 GM PO QID Prescribed by: COURTNEY ENRIQUEZ on 10/07/20950 Tizanidine HCl 4 Mg Tablet, 4 MG PO BID, (Reported) Triamcinolone Acet 15 Gm Cr, 15 GM TP BID Prescribed by: ELADIO NIETO on 02/21/21 1230 Patient Home Medication List Home Medication List Reviewed: Yes (LAISHA ALLAN) Review of Systems Review of Systems Constitutional: No chills, No dizziness, No fever EENTM: No hearing loss, No vision loss Respiratory: No cough, No hemoptysis, No short of breath Cardiovascular: No chest pain, No edema, No palpitations Gastrointestinal: No abdominal pain, No constipation, No diarrhea Genitourinary: No dysuria, No frequency, No hematuria Musculoskeletal: No back pain Skin: change in color (erythema/induration to lower posterior R thigh, increasing in size, currently 5x10cm patch w/ blistering); No change in hair/nails Psychiatric/Neurological: Denies Headache, Denies Numbness, Denies Paresthesia (LAISHA ALLAN) All Other Systems Reviewed Negative Unless Noted: Yes (LAISHA ALLAN) Past Nibmfji-Yyvsvx-Bsgtcv Hx Patient Social History Tobacco Use?: Yes Smoking Status: Current Everyday Smoker (1ppd, 37 pack/years) Substance use?: No Alcohol Use?: No Pt feels they are or have been: No (LAISHA ALLAN) Immunizations Up To Date Tetanus Booster (TDap): Unknown First/Initial COVID19 Vaccinat: 10/22 COVID19 Vaccine Chummer: j&j (LAISHA ALLAN) Seasonal Allergies Seasonal Allergies: Yes (LAISHA ALLAN) Past Medical History Surgery/Hospitalization HX: egd, colonoscopy, asthma, bronchitis, bipolar Surgeries: Yes (reattached tendon on right hand, SINUS, TUBE IN R EAR) Gallbladder, Orthopedic, Vasectomy Respiratory: Yes (HAS HAD RESPIRATORY TESTING- AWAITING RESULTS) Sleep Apnea Currently Using CPAP: No Currently Using BIPAP: No Cardiac: Yes (past chest pain, STRESS TEST THIS SUMMER-PASSED) High Cholesterol, Hypertension Neurological: Yes Headaches /Migraines Reproductive Disorders: No Sexually Transmitted Disease: No HIV/AIDS: No Genitourinary: No Gastrointestinal: Yes Gastroesophageal Reflux Musculoskeletal: Yes Degenerate Disk Disease, Arthritis, Chronic Back Pain Endocrine: No HEENT: Yes (GLASSES) Loss of Vision: Denies Hearing Impairment: Denies Cancer: No Psychosocial: Yes Anxiety, Bipolar, Depression Integumentary: No Blood Disorders: No Adverse Reaction/Blood Tranf: No (N/A) (LAISHA ALLAN Bkam STUDENT) Family Medical History FH: cancer 19 MOTHER ( FROM CANCER LAST YEAR 2013.) Cancer (LAISHA ALLAN Bkam STUDENT) Physical Exam Vital Signs Vital Signs - First Documented 02/23/21 21:45 Temp 37.3 Pulse 110 Resp 20 B/P (MAP) 157/99 (118) Pulse Ox 92 O2 Delivery Room Air (JOVAN DIAS) Vital Signs Capillary Refill : Less Than 3 Seconds (LAISHA ALLAN Bkam STUDENT) General Appearance: WD/WN, no apparent distress HEENT: PERRL/EOMI, normal ENT inspection, pharynx normal Neck: non-tender, full range of motion, supple, normal inspection Cardiovascular: normal peripheral pulses, regular rate, rhythm, no murmur Respiratory: chest non-tender, lungs clear, normal breath sounds, no respiratory distress, no accessory muscle use Gastrointestinal: normal bowel sounds, non tender, soft Back: normal inspection, no CVA tenderness, no vertebral tenderness Extremities: no pedal edema, normal capillary refill, other (moderate nonpitting edema to RLE, 5x10 patch of erythema/induration to posterior aspect of distal R thigh with blisters, no drainage, no areas of fluctuance) Neurologic/Psychiatric: no motor/sensory deficits, alert, normal mood/affect, oriented x 3 Skin: warm/dry, other (erythema/induration/blistering to RLE) Skin Problem Location: lower extremities (RLE) Skin Problem Character: blanching, drainage (burst vesicle), erythema, swelling (RLE), vesicular Lymphatic: no adenopathy (LAISHA ALLAN Bkam STUDENT) Progress/Results/Core Measures Results/Orders Lab Results Laboratory Tests Test 02/23/21 22:17 Range/Units White Blood Count 11.6 H 4.3-11.0 10^3/uL Red Blood Count 4.52 4.30-5.52 10^6/uL Hemoglobin 15.1 13.3-17.7 g/dL Hematocrit 47 40-54 % Mean Corpuscular Volume 105 H 80-99 fL Mean Corpuscular Hemoglobin 33 25-34 pg Mean Corpuscular Hemoglobin Concent 32 32-36 g/dL Red Cell Distribution Width 13.7 10.0-14.5 % Platelet Count 329 130-400 10^3/uL Mean Platelet Volume 9.7 9.0-12.2 fL Immature Granulocyte % (Auto) 1 % Neutrophils (%) (Auto) 59 42-75 % Lymphocytes (%) (Auto) 27 12-44 % Monocytes (%) (Auto) 7 0-12 % Eosinophils (%) (Auto) 5 0-10 % Basophils (%) (Auto) 0 0-10 % Neutrophils # (Auto) 6.9 1.8-7.8 10^3/uL Lymphocytes # (Auto) 3.2 1.0-4.0 10^3/uL Monocytes # (Auto) 0.8 0.0-1.0 10^3/uL Eosinophils # (Auto) 0.6 H 0.0-0.3 10^3/uL Basophils # (Auto) 0.0 0.0-0.1 10^3/uL Immature Granulocyte # (Auto) 0.1 0.0-0.1 10^3/uL Sodium Level 136 135-145 MMOL/L Potassium Level 4.0 3.6-5.0 MMOL/L Chloride Level 105 98-107 MMOL/L Carbon Dioxide Level 21 21-32 MMOL/L Anion Gap 10 5-14 MMOL/L Blood Urea Nitrogen 17 7-18 MG/DL Creatinine 0.74 0.60-1.30 MG/DL Estimat Glomerular Filtration Rate 112 BUN/Creatinine Ratio 23 Glucose Level 100 70-105 MG/DL Calcium Level 9.4 8.5-10.1 MG/DL C-Reactive Protein High Sensitivity 1.71 H 0.00-0.50 MG/DL (JOVAN DIAS) Vital Signs/I&O 02/23/21 21:45 Temp 37.3 Pulse 110 Resp 20 B/P (MAP) 157/99 (118) Pulse Ox 92 O2 Delivery Room Air (JOVAN DIAS) Blood Pressure Mean: 118 Progress Progress Note : Time: 23:15 Progress Note Assumed care of the patient at shift change. The patient has experienced no material deterioration during his ER stay. He does seem to have worsening cellulitis surrounding a apparent spider bite. No evidence of necrotizing fasciitis. Discussed doubling up antibiotic coverage with doxycycline and Bactrim. Probiotics. Wound care counseling. Follow-up in 3 days with primary care for reexamination. (JOVAN DIAS) Diagnostic Imaging Diagonstic Imaging: CT Comments NAME: [facility] REC#: [id number] PT STATUS: REG ER : 1970 PHYSICIAN: ELADIO NIETO AGILE SCRUM MASTER ADMIT DATE: 02/23/21/ER Draft Date of Exam:02/23/21 CT EXTREMITY LOWER RIGHT W PROCEDURE: CT right lower extremity with contrast. TECHNIQUE: Multiple contiguous axial CT images of the right extremity were obtained after intravenous administration of iodinated contrast. Auto Exposure Controls were utilized during the CT exam to meet ALARA standards for radiation dose reduction. INDICATION: Erythema in the posterior right thigh distally. Palpable lump and redness. Evaluate for gas. COMPARISON: None FINDINGS: No acute fracture is seen in the distal right femur. There is no significant knee joint effusion. There is mild lateral patellar tilt, otherwise alignment appears normal. There is sxav-oh-hhtufcbf subcutaneous edema about the distal right thigh, most pronounced posteriorly. Small skin blisters are seen at the posterior lateral thigh, the larger measuring up to 2.4 cm in diameter (image 299 of series 2). No other soft tissue fluid collections are seen. There is no soft tissue gas. The arteries are patent. IMPRESSION: 1. Subcutaneous edema of the distal right thigh with small fluid-filled skin blisters. No other fluid collections and no soft tissue gas. 2. No acute osseous abnormalities seen in the distal right femur. Dictated on workstation # [id number] Dict: 02/23/21 2258 Trans: 02/23/21 2304 [facility] [id number] Interpreted by: ALVARO HALEY MD Electronically signed by: Reviewed: Reviewed by Me (JOVAN DIAS) Departure Impression Primary Impression: Cellulitis Qualified Codes: L03.90 - Cellulitis, unspecified Additional Impression: Spider bite Qualified Codes: T63.301D - Toxic effect of unspecified spider venom, accidental (unintentional), subsequent encounter Disposition: 01 HOME, SELF-CARE Condition: Stable Departure-Patient Inst. Decision time for Depature: 23:15 (JOVAN DIAS) Referrals: JULIA LEUNG MD (PCP) Primary Care Physician DAJUAN BEJARANO APRN (Family) Primary Care Physician Patient Instructions: Cellulitis (Skin Infection), Adult (DC) Add. Discharge Instructions: Keep the wound clean with regular soap and water and thoroughly dry. Open to air is fine while you are at home. Tylenol and ibuprofen as necessary for pain. Continue taking the doxycycline as prescribed. Bactrim 1 tablet twice a day for the next 7 days. Probiotics 1 to 2 capsules twice a day while you are on antibiotics. This will prevent bad diarrhea associated with antibiotics. Follow-up in 3 to 4 days with your primary care provider for reassessment. Return to the ER promptly if you are and able to eat, drink, had a fever above 102.5 or other new, worrisome symptoms. All discharge instructions reviewed with patient and/or family. Voiced understanding. Scripts L.acidoph & Paracasei,B.lactis (Probiotic) 1 Each Capsule 1 EACH PO BID for 10 Days, #20 CAP 0 Refills Prov: JOVAN DIAS 02/23/21 Sulfamethoxazole/Trimethoprim (Bactrim Ds Tablet) 1 Each Tablet 1 EACH PO BID for 7 Days, #14 TAB 0 Refills Prov: JOVAN DIAS 02/23/21 LAISHA ALLAN STUDENT Feb 23, 2021 22:10 JOVAN DIAS Feb 23, 2021 23:20
[2021-02-23 22:29] LABS: BASOPHILS % (AUTO) 0 % (0-10); EOSINOPHILS # (AUTO) 0.6 10^3/uL (0.0-0.3); EOSINOPHILS % (AUTO) 5 % (0-10); HEMATOCRIT 47 % (40-54); HEMOGLOBIN 15.1 g/dL (13.3-17.7); LYMPHOCYTES # (AUTO) 3.2 10^3/uL (1.0-4.0); LYMPHOCYTES % (AUTO) 27 % (12-44); MEAN CORPUSCULAR HEMOGLOBIN 33 pg (25-34); MEAN CORPUSCULAR HGB CONC 32 g/dL (32-36); MEAN CORPUSCULAR VOLUME 105 fL (80-99); MEAN PLATELET VOLUME 9.7 fL (9.0-12.2); MONOCYTES # (AUTO) 0.8 10^3/uL (0.0-1.0); MONOCYTES % (AUTO) 7 % (0-12); NEUTROPHILS # (AUTO) 6.9 10^3/uL (1.8-7.8); NEUTROPHILS % (AUTO) 59 % (42-75); PLATELET COUNT 329 10^3/uL (130-400); WHITE BLOOD COUNT 11.6 10^3/uL (4.3-11.0)
[2021-02-23 22:42] LABS: CALCIUM 9.4 MG/DL (8.5-10.1)
[2021-02-23 22:47] LABS: CREATININE SERUM 0.74 MG/DL (0.60-1.30)
[2021-02-23] MEDS ORDERED: IOHEXOL 350 MG/ML 100 ML (OMNIPAQUE 350) VIAL IV ONE (23:00)
[2021-02-23] MEDS ORDERED: NS 100 ML (IVPB) BAG IV ONE (23:00)
--- NOTE | 2021-02-23 23:05 | Diagnostic Imaging Report ---
PROCEDURE: CT right lower extremity with contrast. TECHNIQUE: Multiple contiguous axial CT images of the right extremity were obtained after intravenous administration of iodinated contrast. Auto Exposure Controls were utilized during the CT exam to meet ALARA standards for radiation dose reduction. INDICATION: Erythema in the posterior right thigh distally. Palpable lump and redness. Evaluate for gas. COMPARISON: None FINDINGS: No acute fracture is seen in the distal right femur. There is no significant knee joint effusion. There is mild lateral patellar tilt, otherwise alignment appears normal. There is gxax-qr-wvdmalvx subcutaneous edema about the distal right thigh, most pronounced posteriorly. Small skin blisters are seen at the posterior lateral thigh, the larger measuring up to 2.4 cm in diameter (image 299 of series 2). No other soft tissue fluid collections are seen. There is no soft tissue gas. The arteries are patent. IMPRESSION: 1. Subcutaneous edema of the distal right thigh with small fluid-filled skin blisters. No other fluid collections and no soft tissue gas. 2. No acute osseous abnormalities seen in the distal right femur. Dictated by: Dictated on workstation # [id number]
[2021-02-23] MEDS ORDERED: L.AC1CAP6 PO (23:28)
[2021-02-23] MEDS ORDERED: SULF1TAB38 PO (23:28)
[2021-02-24] VITALS: BP 154/91
== END 2021-02-24 | disposition home or self-care (01) ==
LOC: EDUNIT# 21:11 → ER 21:13
DX: T63.301A Toxic effect of unspecified spider venom, accidental (unintentional), initial encounter (principal); L03.115 Cellulitis of right lower limb; G47.30 Sleep apnea, unspecified; I10 Essential (primary) hypertension; E78.00 Pure hypercholesterolemia, unspecified; K21.9 Gastro-esophageal reflux disease without esophagitis; F32.9 Major depressive disorder, single episode, unspecified; G89.29 Other chronic pain; M54.9 Dorsalgia, unspecified; F17.210 Nicotine dependence, cigarettes, uncomplicated; Z79.82 Long term (current) use of aspirin; Z79.891 Long term (current) use of opiate analgesic; Z79.899 Other long term (current) drug therapy
CPT/HCPCS: 36415; 73701; 80048; 84145; 85025; 86141

== ENCOUNTER 2021-04-16 05:28 | Outpatient (RCR) | payer MEDICARE, MEDICAID ==
[~2021-04-16] VITALS: Ht 182.9 cm; Wt 147.3 kg
[~2021-04-16 05:28] MED LIST changes: +ALB0.5V INH; +BUDE10.2 IH; +L.AC1CAP6 PO; +OSEL75CA15 PO; +SULF1TAB38 PO
== END 2021-04-16 11:42 | disposition home or self-care (01) ==
LOC: PREOP 05:28
PROVIDERS: ATTEND Surgery
DX: Z01.812 Encounter for preprocedural laboratory examination (principal); K21.9 Gastro-esophageal reflux disease without esophagitis; R11.2 Nausea with vomiting, unspecified; Z20.822 Contact with and (suspected) exposure to COVID-19
CPT/HCPCS: 87635

== ENCOUNTER 2021-04-17 11:46 | Day surgery (SDC) | payer MEDICARE, MEDICAID ==
[~2021-04-17] VITALS: Ht 182.9 cm; Wt 147.3 kg
[2021-04-17] MEDS ORDERED: LACTATED RINGERS 1,000 ML IV ONE (11:58)
[2021-04-17] MEDS ORDERED: LACTATED RINGERS 1,000 ML IV STA (12:07)
[2021-04-17 12:10] VITALS: BP 140/93
[2021-04-17] MEDS ORDERED: LIDOCAINE JELLY 2% 6 ML SYRINGE MM PRN (12:15)
[2021-04-17] MEDS ORDERED: HURRICAINE EXT TUBE (BENZOCAINE) XX PRN (12:15)
--- NOTE | 2021-04-17 12:20 | Conscious Sedation/ASA ---
Conscious Sedation Pre-Proced Time 12:00 ASA Score 2 For ASA 3 and 4: Consider anesthesia and medical clearance. Also, for patients with a history of failed moderate sedation consider anesthesia. Airway Lungs Heart ASA score ASA 1: a normal healthy patient ASA 2: a patient with a mild systemic disease (mid diabetes, controlled hypertension, obesity ASA 3: a patient with a severe systemic disease that limits activity (angina, COPD, prior Myocardial infarction) ASA 4: a patient with an incapacitating disease that is a constant threat to life (CHF, renal failure) ASA 5: a moribund patient not expected to survive 24 hrs. (ruptured aneurysm) ASA 6: a declared brain- patient whose organs are being harvested. For emergent operations, add the letter E after the classification Mallampati Classification Grade 2 Sedation Plan Analgesia, Amnesia, Plan communicated to team members, Discussed options with patient/fam, Discussed risks with patient/fam The patient is an appropriate candidate to undergo the planned procedure, sedation, and anesthesia. The patient immediately re-assessed prior to indication. LUNA MARROQUIN MD Apr 17, 2021 12:20
--- NOTE | 2021-04-17 12:20 | Progress Note-Pre Operative ---
Pre-Operative Progress Note H&P Reviewed The H&P was reviewed, patient examined and no changes noted. Date Seen by Provider: Apr 17, 2021 Time Seen by Provider: 12:00 Date H&P Reviewed: Apr 17, 2021 Time H&P Reviewed: 12:00 Pre-Operative Diagnosis: GERD, nausea/vomiting LUNA MARROQUIN MD Apr 17, 2021 12:20
--- NOTE | 2021-04-17 12:22 | Discharge Inst-Surgical ---
D/C Lap Instructions-CARA Follow Up Activity as tolerated High Fiber Diet 25g or more per day Avoid Alcohol, Caffeine, Spicy [place] and Acid foods. Drink 64 fluid oz or more of fluids per day. Symptoms to Report: Fever over 101 degree F, Nausea/Vomiting If any problems/questions: Contact your physician or go to Emergency Room LUNA MARROQUIN MD Apr 17, 2021 12:21
[2021-04-17] MEDS ORDERED: ONDANSETRON 4 MG (ZOFRAN) ORAL DISSOLVE TAB PO PRN (12:30)
[2021-04-17] MEDS ORDERED: ONDANSETRON 4 MG/2 ML (SDV) Z0FRAN IVP PRN (12:30)
[2021-04-17] MEDS ORDERED: RT-ALBUTEROL SULF 2.5 MG/3 ML PRE-MIX VIAL INH ONE (12:45)
[2021-04-17] MEDS ORDERED: RT-ALBUTEROL SULF 2.5 MG/3 ML PRE-MIX VIAL ONE (13:01)
[2021-04-17] MEDS ORDERED: KETAMINE SYRINGE 50 MG/5 ML SYRINGE ONE (13:28)
[2021-04-17] MEDS ORDERED: MIDAZOLAM 2 MG/2 ML (VERSED) VIAL ONE (13:28)
[2021-04-17] MEDS ORDERED: proPOfol 200 MG/20 ML (DIPRIVAN) VIAL IV ONE (13:29)
[2021-04-17 13:50] VITALS: BP 163/101
--- NOTE | 2021-04-17 13:54 | Progress Note-Post Operative ---
Post-Operative Progess Note Surgeon (s)/[employer] Service (s) Surgeon LUNA MARROQUIN MD [employer]: none Pre-Operative Diagnosis GERD, nausea/vomiting Post-Operative Diagnosis reflux esophagitis(stage 2), small HH(1.5cm), severe diffuse gastitis with small prepyloric ulcer. Procedure & Operative Findings Date of Procedure 04/17/21 Procedure Performed/Findings EGD with bx. Anesthesia Type mac Estimated Blood Loss Estimated blood loss (mL): minimal Specimens/Packing Specimens Removed prepyloric ulcer, antrum, ge jxn LUNA MARROQUIN MD Apr 17, 2021 13:54
[2021-04-17 14:15] VITALS: BP 163/101
--- NOTE | 2021-04-17 14:27 | Anesthesia-General Post-Op ---
MAC Patient Condition Mental Status/LOC: Same as Preop Cardiovascular: Satisfactory Nausea/Vomiting: Absent Respiratory: Satisfactory Pain: Controlled Complications: Absent Post Op Complications Complications None Follow Up Care/Instructions Patient Instructions None needed. Anesthesiology Discharge Order Discharge Order Patient is doing well, no complaints, stable vital signs, no apparent adverse anesthesia problems. No complications reported per nursing. MENDEZ JOSHI CRNA Apr 17, 2021 14:27
--- NOTE | 2021-04-17 16:51 | OPERATIVE REPORT ---
DATE OF SERVICE: 04/17/2021 ATTENDING PRIMARY CARE PHYSICIAN: Femi Glass APRN. PREOPERATIVE DIAGNOSES: Epigastric pain, gastroesophageal reflux disease, nausea, vomiting. POSTOPERATIVE DIAGNOSES: Reflux esophagitis stage II, small hiatal hernia 1.5 cm in size, severe gastritis with a prepyloric ulcer, which was small, approximately 5 mm in size. No distal obstructions. PROCEDURE: EGD with biopsy. SURGEON: Luna Marroquin MD. ANESTHESIA: Monitored anesthesia care. ESTIMATED BLOOD LOSS: Minimal. FINDINGS: Reflux esophagitis stage II, small hiatal hernia 1.5 cm in size, severe gastritis with a prepyloric ulcer, which was small, approximately 5 mm in size. No distal obstructions. DISPOSITION: The patient tolerated the procedure well. INDICATIONS: The patient is a 50-year-old male who has had issues with epigastric pain and nausea and vomiting for some amount of time. He states that he did have an EGD done this year and was found to have gastritis and was treated; however, he would continue to have the epigastric pain as well as nausea and vomiting. He does have a number of risk factors for gastroesophageal reflux disease as well as peptic ulcer disease including smoking [id number] history of smoking as well as significant amounts of caffeinated beverages and obesity. DESCRIPTION OF PROCEDURE: The patient was brought to the endoscopy suite, laid in the left lateral decubitus position. After adequate IV pain and sedative medications and monitored anesthesia care, the mouthpiece was applied. The endoscope was placed in the mouth, visualizing the pharynx and hypopharyngeal region. Vocal cords, epiglottis and vallecula identified and appeared to be normal. The endoscope was then gently intubated. Esophageal opening and esophagus insufflated. The endoscope was then advanced through the first, second and third portions of esophagus at the level of the GE junction, a reflux esophagitis stage II identified. The GE junction was also intrathoracic consistent with a hiatal hernia. A biopsy was taken with forceps with visualization of good hemostasis. The endoscope was then advanced into the stomach and endoscope retroflexed, visualizing a small hiatal hernia approximately 1.5 cm in size. There was a severe gastritis noted. This was diffuse; however, worse at the pylorus with a small prepyloric ulcer approximately 5 mm in size. This was biopsied with forceps with visualization of good hemostasis. A separate antral biopsy was also taken to rule out H. pylori. The endoscope was then advanced to the pylorus and the first and second portion of the duodenum, which appeared normal. The endoscope was then slowly withdrawn while taking a second look and suctioning of residual air with no additional findings. The patient tolerated the procedure well. For her severe gastritis and reflux esophagitis, he needs to proceed with the necessary lifestyle and diet accommodation. He is currently on Protonix 40 mg daily; however, we will add omeprazole 40 mg daily to be taken at a separate time during the day. He also needs to proceed with taking in small and more frequent meals as well as avoidance of eating at night. He also needs to proceed with cessation or at least moderation of smoking, caffeinated beverages as well as spicy, greasy and acidic foods. Any type of regularly scheduled diet and exercise regimen to help lose weight would also help with his symptomatology. We will also await the biopsy results. Job ID: [id number] DocumentID: [id number] Dictated Date: 04/17/2021 13:52:35 Area Counselor Date: 04/17/2021 16:50:26 Dictated By: LUNA MARROQUIN MD
== END 2021-04-17 14:30 | disposition home or self-care (01) ==
LOC: ENDO 11:46
PROVIDERS: ATTEND Surgery
DX: K21.00 Gastro-esophageal reflux disease with esophagitis, without bleeding (principal); K44.9 Diaphragmatic hernia without obstruction or gangrene; K29.70 Gastritis, unspecified, without bleeding; K25.9 Gastric ulcer, unspecified as acute or chronic, without hemorrhage or perforation; I10 Essential (primary) hypertension; J45.909 Unspecified asthma, uncomplicated; G47.33 Obstructive sleep apnea (adult) (pediatric); F17.210 Nicotine dependence, cigarettes, uncomplicated; M19.90 Unspecified osteoarthritis, unspecified site; K21.9 Gastro-esophageal reflux disease without esophagitis; E66.01 Morbid (severe) obesity due to excess calories; F32.A Depression, unspecified; E78.00 Pure hypercholesterolemia, unspecified; F41.9 Anxiety disorder, unspecified; Z79.899 Other long term (current) drug therapy; Z68.41 Body mass index [BMI] 40.0-44.9, adult; Z90.49 Acquired absence of other specified parts of digestive tract
CPT/HCPCS: 94640

== ENCOUNTER 2023-01-06 23:38 | Emergency (ER) | payer MEDICARE, MEDICAID ==
[~2023-01-06] VITALS: Ht 180 cm; Wt 131.0 kg
[~2023-01-06 23:38] MED LIST changes: +PARO-135 PO; -PARO40TA PO; +TIZA-186 PO; -TIZA4TAB4 PO
[2023-01-06 23:44] VITALS: BP 144/100
[2023-01-06] MEDS ORDERED: FAMO40TA6 (23:49)
[2023-01-07] MEDS ORDERED: HYDROcodone/APAP 5 MG/325 MG (LORTAB) TAB PO ONE (00:15)
[2023-01-07] MEDS ORDERED: ACHD5005 PO (00:25)
--- NOTE | 2023-01-07 00:27 | ED Upper Extremity ---
General Chief Complaint: Upper Extremity Stated Complaint: LEFT SHOULDER PAIN Nursing Triage Note: c/o left shoulder pain x2.5 weeks. seen at [facility] for same. f/u appointment with ortho 01/17/23. states unable to sleep d/t pain. motrin taken at 2300. denies injury. Source: patient Exam Limitations: no limitations History of Present Illness Date Seen by Provider: Jan 06, 2023 Time Seen by Provider: 23:50 Initial Comments This 52-year-old gentleman presents to the emergency room with complaints of worsening left shoulder pain over the past 2 to 3 weeks. He denies any injury, past or recent. He has been seen at [facility] for this problem and had x-rays obtained. He reports x-rays revealed degenerative changes but no acute injuries. He has an appointment with orthopedics on January 17. He has been trying Tylenol, ibuprofen, naproxen, IcyHot, heat, and cold. He has not had significant relief from these treatments. He is not able to sleep. He is req uesting help with pain management. Allergies and Home Medications Allergies Coded Allergies: erythromycin base (Verified Allergy, Severe, ANAPHYLAXIS, 09/18/19) cefaclor (Verified Allergy, Mild, ABDOMINAL PAIN/NAUSEA, 09/18/19) Patient Home Medication List Home Medication List Reviewed: Yes Albuterol Sulfate (Albuterol Sulfate) 2.5 Mg/0.5 Ml Vial.neb, 2.5 MG INH Q4H, (Reported) Entered as Reported by: TONYA RAMIREZ on 04/15/211006 Atorvastatin Calcium (Atorvastatin Calcium) 10 Mg Tablet, 10 MG PO HS, (Reported) Entered as Reported by: BRIGETTE MAC on 09/30/201758 Budesonide/Formoterol Fumarate (Symbicort 160-4.5 Mcg Inhaler) 10.2 Gm Hfa.aer.ad, 2 PUFF IH BID, (Reported) Entered as Reported by: TONYA RAMIREZ on 04/15/211006 Desvenlafaxine Succinate (Pristiq ER) 100 Mg Tab.er.24h, 100 MG PO DAILY, (Reported) Entered as Reported by: BRIGETTE MAC on 09/30/201758 Famotidine (Famotidine) 40 Mg Tablet, (Reported) Entered as Reported by: CALDERON GASTON on 01/06/23 3095 Last Action: New Order Hydrocodone/Acetaminophen (Hydrocodone-Acetamin 5-325 mg) 5 Mg-325 Mg Tablet, 1 TAB PO Q4H PRN for PAIN-BREAKTHROUGH Prescribed by: MALINA CARDONA on 01/07/23 0026 Lisinopril/Hydrochlorothiazide (Lisinopril-Hctz 20-12.5 mg Tab) 1 Each Tablet, 1 EACH PO BID, (Reported) Entered as Reported by: BRIGETTE MAC on 09/30/20 175 Oseltamivir Phosphate (Oseltamivir Phosphate) 75 Mg Capsule, 75 MG PO DAILY, (Reported) Entered as Reported by: TONYA RAMIREZ on 04/15/21 1007 Pantoprazole Sodium (Protonix) 40 Mg Tablet.dr, 40 MG PO BID Prescribed by: COURTNEY ENRIQUEZ on 10/07/20 0951 Propranolol HCl (Propranolol HCl) 40 Mg Tablet, 80 MG PO BID, (Reported) Entered as Reported by: MARI VELEZ on 09/11/19 1355 Sucralfate (Carafate) 1 Gm Tablet, 1 GM PO QID Prescribed by: COURTNEY ENRIQUEZ on 10/07/20 0951 Tizanidine HCl (Tizanidine HCl) 4 Mg Tablet, 4 MG PO BID, (Reported) Entered as Reported by: BRIGETTE MAC on 09/30/201758 Review of Systems Constitutional: no symptoms reported EENTM: no symptoms reported Respiratory: no symptoms reported Cardiovascular: no symptoms reported Gastrointestinal: no symptoms reported Genitourinary: no symptoms reported Musculoskeletal: see HPI Skin: no symptoms reported Psychiatric/Neurological: No Symptoms Reported Past Innppym-Lrzilm-Svtbab Hx Patient Social History Tobacco Use?: Yes Substance use?: No Alcohol Use?: No Pt feels they are or have been: No Immunizations Up To Date Tetanus Booster (TDap): Unknown First/Initial COVID19 Vaccinat: 10/22 Second COVID19 Vaccination John: 10/22 Third COVID19 Vaccination Date: 10/22 Seasonal Allergies Seasonal Allergies: Yes Past Medical History Surgery/Hospitalization HX: egd, colonoscopy, asthma, bronchitis, bipolar, htn, gerd, hld Surgeries: Yes (reattached tendon on right hand, SINUS, TUBE IN R EAR) Gallbladder, Orthopedic, Vasectomy Respiratory: Yes (HAS HAD RESPIRATORY TESTING- AWAITING RESULTS) Sleep Apnea, COPD Currently Using CPAP: No Currently Using BIPAP: No Cardiac: Yes (Negative stress test 2014) High Cholesterol, Hypertension Neurological: Yes Headaches /Migraines Reproductive Disorders: No Sexually Transmitted Disease: No HIV/AIDS: No Genitourinary: No Gastrointestinal: Yes Gastroesophageal Reflux Musculoskeletal: Yes Degenerate Disk Disease, Arthritis, Chronic Back Pain Endocrine: No HEENT: Yes (GLASSES) Loss of Vision: Denies Hearing Impairment: Denies Cancer: No Psychosocial: Yes Anxiety, Bipolar, Depression Integumentary: No Blood Disorders: No Adverse Reaction/Blood Tranf: No (N/A) Family Medical History FH: cancer 19 MOTHER ( FROM CANCER LAST YEAR 2013.) Cancer Physical Exam Vital Signs Vital Signs - First Documented 01/06/23 23:44 Temp 36.5 Pulse 109 Resp 18 B/P (MAP) 144/100 (115) Pulse Ox 92 O2 Delivery Room Air Capillary Refill : Less Than 3 Seconds Height, Weight, BMI Height: 6'0" Weight: 250lbs. 0.0oz. [id number]; 40.00 BMI Method:Stated General Appearance: WD/WN, no apparent distress HEENT: normal ENT inspection Neck: normal inspection Cardiovascular: regular rate, rhythm Respiratory: lungs clear, normal breath sounds, no respiratory distress Shoulder: normal inspection, bone tenderness (TTP over the shoulder joint and into the trapezius muscle), limited ROM (Mild to moderate decrease in ROM due to pain, especially with abduction) Elbow/Forearm: normal inspection, no evidence of injury, normal ROM Wrist: Yes normal inspection, Yes no evidence of injury, Yes normal ROM Hand: normal inspection, no evidence of injury, normal ROM Neurologic/Tendon: normal sensation, normal motor functions Neurologic/Psychiatric: no motor/sensory deficits, alert, normal mood/affect, oriented x 3 Skin: normal color, warm/dry Progress/Results/Core Measures Results/Orders My Orders Orders - MALINA BLNAKENSHIP MD Hydrocodone/Apap 5/325 Tablet (Lortab 5 (01/07/23 00:15) Medications Given in ED Current Medications Medications Dose Ordered Sig/Tang Route Start Time Stop Time Status Last Admin Dose Admin Acetaminophen/ Hydrocodone Bitart 1 ea ONCE ONCE PO 01/07/23 00:15 01/07/23 00:16 DC 01/07/23 00:31 1 EA Vital Signs/I&O 01/06/23 01/07/23 23:44 00:31 Temp 36.5 36.5 Pulse 109 Resp 18 B/P (MAP) 144/100 (115) Pulse Ox 92 O2 Delivery Room Air Blood Pressure Mean: 115 Progress Progress Note : Progress Note X-rays have already been obtained. Referral to orthopedics has been arranged. Patient needs help with pain management. Hydrocodone was administered in the ER and prescribed. Patient's reported Ultram was not a successful medication for him in the past. See discharge instructions for further discussion. Departure Impression Primary Impression: Left shoulder pain Qualified Codes: M25.512 - Pain in left shoulder Disposition: 01 HOME, SELF-CARE Condition: Stable Departure-Patient Inst. Decision time for Depature: 00:23 Referrals: CECI ALAS APRN (PCP/Family) Primary Care Physician Patient Instructions: Shoulder Pain (DC) Add. Discharge Instructions: Keep your appointment with the orthopedic provider. Use ibuprofen up to 600 mg every 6 hours as needed for primary pain control. Take with food or milk to avoid stomach irritation. Add hydrocodone as prescribed for pain not controlled by ibuprofen. Use hydrocodone with caution as it may cause drowsiness. Do not drive, operate machinery, or make important decisions while on hydrocodone. Hydrocodone may also cause constipation, so you may wish to use a stool softener such as Colace while on hydrocodone. Drink plenty of clear liquids. You may continue using topical treatments for your shoulder pain also. Return to care if you have worsening symptoms despite following these instructions. All discharge instructions reviewed with patient and/or family. Voiced understanding. Scripts Hydrocodone/Acetaminophen (Hydrocodone-Acetamin 5-325 mg) 5 Mg-325 Mg Tablet 1 TAB PO Q4H PRN for PAIN-BREAKTHROUGH, #15 TAB Prov: MALINA BLANKENSHIP MD 01/07/23 Copy Copies To 1: [facility] [place] MALINA BLANKENSHIP MD Jan 07, 2023 00:27
== END 2023-01-07 00:32 | disposition home or self-care (01) ==
LOC: EDUNIT# 23:38 → ER 23:41
DX: M25.512 Pain in left shoulder (principal)
CPT/HCPCS: 99283